=== PATIENT | male | born 1995 | race Caucasian/White ===

== ENCOUNTER 2016-07-24 16:17 | Inpatient (IN) | payer OTHER ==
[~2016-07-24] VITALS: Ht 182.9 cm; Wt 61.7 kg
[2016-07-24] VITALS (7 sets, daily range): BP systolic 107–127; BP diastolic 69–84
--- NOTE | ~2016-07-24 | EKG ---
[place] [address] [facility] [place] [address] ELECTROCARDIOGRAM REPORT Name: TAMIRJORDY HOPKINS Room #: 456-P ADM IN M.R.#: [id number] Admission: 07/24/16 Attend Phys: Marlene Padilla MD Discharge: Date of : [birth year] Report #: [id number] THIS REPORT FOR: //name// [facility] ED Test Date: 2016-07-24 Test Time: 16:44:42 Pat Name: JORDY GARNETT Department: Room: 456 Gender: M Saw Man: brynn : 1995 Requested By: Cathy Mueller Order Number: [id number] MD: Vipin Brito Measurements Intervals [place] Rate: 89 P: 102 ME: 153 QRS: 105 QRSD: 101 T: 83 QT: 362 QTc: 441 Interpretive Statements Right and left arm electrode reversal, interpretation assumes no reversal Sinus rhythm Borderline right axis deviation No previous ECG available for comparison Electronically Signed On 07-25-2016 8:18:17 CDT by Vipin Brito [email or web address] <ELECTRONICALLY SIGNED> By: Vipin Brito MD, [facility] 07/25/16 0818 43 Vipin Brito MD, FAC /EPI
--- NOTE | ~2016-07-24 | HC ---
[facility] [address] [place] [address] CONSULTATION Name: JORDY GARNETT Room #: 456-P [facility] IN M.R.#: [id number] Admission: 07/24/16 Attend Phys: Marlene Padilla MD Discharge: 07/26/16 Date of : [birth year] Report #: [id number] THIS REPORT FOR: //name// CC: Mode Padilla DATE OF SERVICE: 07/25/2016 We were asked to see the patient for followup of spontaneous right pneumothorax. HISTORY OF PRESENT ILLNESS: The patient is a 20-year-old who claims that approximately one month ago, he developed severe right chest pain. The patient said he did not have health insurance and deferred being seen until just yesterday when at urgent care he was found to have a right-sided pneumothorax on chest x-ray. The patient came to this institution and the chest tube was placed and our help was requested to decide about when to take the tube out, apparently. PAST MEDICAL HISTORY: The patient denies chronic disease. MEDICATIONS: None. ALLERGIES: None. FAMILY HISTORY: Not significant for previous pneumothorax. SOCIAL HISTORY: The patient is a smoker. Denies using marijuana. REVIEW OF SYSTEMS: CONSTITUTIONAL: No fever or chills. EYES: No eye pain or vision change. HEENT: Allergic rhinitis positive, rhinorrhea positive, no sore throat. RESPIRATORY: Positive for cough and shortness of breath. No hemoptysis. CARDIAC: Right-sided chest pain. No angina. No palpitations. GASTROINTESTINAL: No nausea, vomiting, diarrhea or blood. GENITOURINARY: No urgency, frequency, blood. MUSCULOSKELETAL: No back pain. No bone or joint pain. SKIN: No rash or infection. NEUROLOGIC: No headache. No motor, no sensory dysfunction. ENDOCRINE: No diabetes or hypothyroidism. HEMATOLOGIC AND LYMPHATIC: No anemia, swelling, easy bruisability. PSYCHIATRIC: No depression or anxiety. PHYSICAL EXAMINATION: GENERAL: The patient is a pleasant fellow. He is a tall, thin fellow. VITAL SIGNS: Blood pressure 106/66, heart rate 59, temperature 36.8, [facility] [address] [place] [address] CONSULTATION Name: JORDY GARNETT Room #: 456-P [facility] IN M.R.#: [id number] Admission: 07/24/16 Attend Phys: Marlene Padilla MD Discharge: 07/26/16 Date of : [birth year] Report #: [id number] respiratory rate 14, O2 sat 98 on room air. HEENT: No scleral icterus, no arcus. Pupils are round, equal. Gaze conjugate, normocephalic. No oral or nasal injection. NECK: No mass, no bruit. CHEST: Somewhat ____ sounding. No dyssymmetry. No adventitious sounds. HEART: Rhythm regular, somewhat distant. ABDOMEN: Soft, no mass, no tenderness. EXTREMITIES: No clubbing, cyanosis or edema. SKIN: No rash or infection. NEUROLOGIC: No motor or sensory dysfunction. PSYCHIATRIC: Shows insight into problem, pleasant young man, oriented and appropriate. Chest tube shows negative pressure consistent with placement in the chest. There is no fluctuation and no air leak. I placed a chest tube to water seal. The patient had spontaneous pneumothorax that was treated with chest tube. The lung seems to be fully expanded with no evidence for air leak as such, I have placed the tube to water seal and may be able to take the tube out in a day or so. Thank you for the consult. <ELECTRONICALLY SIGNED> By: Mode Gonsalves MD 07/28/16 1413 1526 2048 Mode Gonsalves MD /nt
--- NOTE | ~2016-07-24 | H ---
[facility] [address] [place] [address] HISTORY AND PHYSICAL Name: JORDY GARNETT Room #: 456-P ADM IN M.R.#: [id number] Admission: 07/24/16 Attend Phys: Marlene Padilla MD Discharge: Date of : [birth year] Report #: [id number] THIS REPORT FOR: //name// CC: Mode Padilla DATE OF SERVICE: 07/24/2016 DATE OF ADMISSION: 07/24/2016. CHIEF COMPLAINT: Chest pain. HISTORY OF PRESENT ILLNESS: The patient is a 20-year-old male, heavy smoker, also prior history of substance abuse, who presented to the ER secondary to chest pain. He indicates that initially started having some chest pain about a month ago. Intermittently, it lasted for a few days. Pain was described as right-sided and underneath his diaphragm. The patient notes that pain was dull in nature with associated shortness of breath. Yesterday, he had recurrence of his symptoms without any precipitating event. He denies recent trauma and heavy coughing. At this time, the pain was markedly worse and again more associated underneath his diaphragm. He also has some shortness of breath as well. Workup in the ER included a chest x-ray that showed moderate to large right pneumothorax with partial collapse of his lung. I was asked to admit him for further management and care. He denies any prior history of this. He indicates he has not used any substances in a year and a half. He is also refusing any pain medications at this time for that reason. PAST MEDICAL HISTORY: None. PAST SURGICAL HISTORY: None. ALLERGIES: None. REVIEW OF SYSTEMS: A 14-point review of systems was conducted, all negative except for above. SOCIAL HISTORY: Smokes a pack per day. Does not drink. Prior history of substance abuse and basically used "everything". His last use was about a year and a half ago. 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 FAMILY HISTORY: Reviewed and noncontributory. PHYSICAL EXAMINATION: VITAL SIGNS: Temperature 98, pulse 97, blood pressure 123/69, and O2 sat 97% on room air. GENERAL: He is awake, alert, answering questions appropriately, in no acute [address] [address] HISTORY AND PHYSICAL Name: JORDY GARNETT Room #: 456-P [facility] IN [facility]#: [id number] Admission: 07/24/16 Attend Phys: Marlene Padilla MD Discharge: Date of : [birth year] Report #: [id number] respiratory distress. HEENT: Normocephalic, atraumatic. Pupils equal. NECK: Supple. CARDIOVASCULAR: Regular rate and rhythm, no murmurs. LUNGS: Decreased breath sounds on the right side. ABDOMEN: Soft, no distention or tenderness. EXTREMITIES: No edema. NEUROLOGIC: Nonfocal. LABORATORIES AND TESTING: Chest x-ray again showed moderate to large right-sided pneumothorax. CBC showed no significant abnormalities. CMP: Potassium 3.3. EKG, rate of 89. ASSESSMENT AND PLAN: 1. Spontaneous pneumothorax. The patient is to have a chest tube placed by IR today. Continue O2 support, pulmonary toiletry. Consult pulmonary. 2. Tobacco abuse. Advised cessation. Provided Nicoderm patch p.r.n. 3. Deep venous thrombosis prophylaxis with sequential compression devices. By: 1815 192 Marlene Padilla MD /nt
[2016-07-24 16:58] LABS: ABSOLUTE NEUTROPHILS 5.8 thou/uL (1.4-8.2); BASOPHILS 0.6 % (0.0-2.0); EOSINOPHILS 5.4 % (0.0-3.0); HEMATOCRIT 42.6 % (42.0-52.0); HEMOGLOBIN 15.1 gm/dL (14.0-18.0); LYMPHOCYTES 24.8 % (24.0-44.0); MCH 31.2 pg (26.0-34.0); MCHC 35.4 g/dL (28.0-37.0); MONOCYTES 7.3 % (1.0-8.0); PLATELET COUNT 221 thou/uL (150-400); POLYS 61.9 % (36.0-66.0); RBC 4.84 mil/uL (4.50-6.00); RDW 12.8 % (10.5-14.5); WBC 9.4 thou/uL (4.0-11.0)
[2016-07-24 17:00] LABS: MANUAL DIFF NO
[2016-07-24 17:03] LABS: CALCIUM 8.8 mg/dL (8.5-10.1); CREATININE 1.1 mg/dL (0.7-1.3); POTASSIUM 3.3 mmol/L (3.5-5.1)
[2016-07-24 17:08] LABS: ALBUMIN 4.4 g/dL (3.4-5.0); TOTAL BILIRUBIN 0.5 mg/dL (<0.1-1.0)
[2016-07-25] VITALS (7 sets, daily range): BP systolic 101–117; BP diastolic 66–85
[2016-07-25 06:59] LABS: ABSOLUTE NEUTROPHILS 4.7 thou/uL (1.4-8.2); BASOPHILS 0.8 % (0.0-2.0); EOSINOPHILS 6.9 % (0.0-3.0); HEMATOCRIT 41.7 % (42.0-52.0); HEMOGLOBIN 14.5 gm/dL (14.0-18.0); LYMPHOCYTES 33.3 % (24.0-44.0); MCH 30.8 pg (26.0-34.0); MCHC 34.7 g/dL (28.0-37.0); MCV 88.7 fL (80.0-100.0); MONOCYTES 6.4 % (1.0-8.0); PLATELET COUNT 212 thou/uL (150-400); POLYS 52.6 % (36.0-66.0); RDW 12.9 % (10.5-14.5); WBC 8.9 thou/uL (4.0-11.0)
[2016-07-25 07:03] LABS: MANUAL DIFF NO
[2016-07-26 03:30] VITALS: BP 98/53
[2016-07-26 07:53] VITALS: BP 80/46
[2016-07-26 12:01] VITALS: BP 99/63
[2016-07-26 13:01] VITALS: BP 99/63
== END 2016-07-26 13:43 | disposition home or self-care (01) | DRG 201 ==
LOC: ER 16:17 → EROBS 17:25 → 4W 17:25
PROVIDERS: Family Medicine; Physician Assistant
PROC: 0W9930Z Drainage of Right Pleural Cavity with Drainage Device, Percutaneous Approach (ICD-10-PCS; principal; 2016-07-24)
DX: J93.83 Other pneumothorax (principal); F17.210 Nicotine dependence, cigarettes, uncomplicated; Z71.6 Tobacco abuse counseling; Z87.898 Personal history of other specified conditions
CPT/HCPCS: 10045